=== PATIENT | female | born 1980 ===

== ENCOUNTER 2020-12-07 05:58 | Day surgery (SDC) | payer OTHER ==
[~2020-12-07 05:58] MED LIST: FORTAMET1000 MG PO
== END 2020-12-07 19:25 | disposition home or self-care (01) ==
LOC: CIR.AMB 05:58
PROVIDERS: ATTEND Obstetrics & Gynecology
DX: D26.1 Other benign neoplasm of corpus uteri (principal); Z20.822 Contact with and (suspected) exposure to COVID-19